=== PATIENT | male | born 1960 | race Two or more races ===

== ENCOUNTER 2022-04-19 12:01 | Emergency (ER) | payer OTHER, SELFPAY ==
[2022-04-19 12:27] VITALS: BP 150/88; BP 162/92; PULSE 81; PULSE 82; RESP 16; TEMP 36.5; O2SAT 97; O2SAT 98; BMI 35.6
--- NOTE | 2022-04-19 12:28 | ED.BACK ---
HPI - Back Pain/Injury General Chief Complaint: Back Pain/Injury <Venus Schreiber CNP - Last Filed: 04/19/22 12:31> Stated Complaint: Back pain since last PM per EMS <Venus Schreiber CNP - Last Filed: 04/19/22 12:31> Time Seen by Provider: 04/19/22 13:03 <Venus Schreiber CNP - Last Filed: 04/19/22 12:31> Source: patient, family (patient's ) and EMS <YVONNE Carlson - Last Filed: 04/19/22 18:45> Mode of arrival: EMS <YVONNE Carlson - Last Filed: 04/19/22 18:45> Limitations: no limitations <YVONNE Carlson - Last Filed: 04/19/22 18:45> History of Present Illness HPI Narrative: Patient is a 61 year old assigned male at with no reported medical history presenting to the emergency department today with low back pain. Patient states that he has had left sided low back pain that radiates down his left leg. 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 Patient denies any dizziness, lightheadedness, abdominal pain, nausea, vomiting, fever, chills, blurry vision, double vision, loss of vision, chest pain, difficulty breathing, shortness of breath, night sweats, pain with urination, increased urinary frequency, increased urinary urgency, blood in his urine or stool, syncope or a near syncopal episode, recent trauma or falls, bowel incontinence, bladder incontinence, bowel retention, bladder retention, or any other complaints at this time. <YVONNE Carlson - Last Filed: 04/19/22 18:45> MD elicited complaint: back pain <YVONNE Carlson - Last Filed: 04/19/22 18:45> Onset (ago): day(s) <YVONNE Carlson - Last Filed: 04/19/22 18:45> Timing: constant <YVONNE Carlson - Last Filed: 04/19/22 18:45> Severity: mild <YVONNE Carlson Last Filed: 04/19/22 18:45> Pain scale (0-10): 3 <YVONNE Carlson - Last Filed: 04/19/22 18:45> Quality: dull <YVONNE Carlson - Last Filed: 04/19/22 18:45> Location: lumbar spine <YVONNE Carlson - Last Filed: 04/19/22 18:45> Radiation: left upper leg <YVONNE Carlson - Last Filed: 04/19/22 18:45> Exacerbating factors: movement <YVONNE Carlson - Last Filed: 04/19/22 18:45> Relieving factors: none <YVONNE Carlson - Last Filed: 04/19/22 18:45> Associated symptoms: denies other symptoms <YVONNE Carlson - Last Filed: 04/19/22 18:45> Related Data Home Medications: Previous Rx's Medication Instructions Recorded cyclobenzaprine 5 mg tablet 5 mg PO TID PRN back pain 7 days 04/19/22 #21 tabs <Venus Schreiber CNP - Last Filed: 04/19/22 12:31> Allergies/Adverse Reactions: Allergies Allergy/AdvReac Type Severity Reaction Status Date / Time No Known Allergies Allergy Verified 04/19/22 12:31 <Venus Schreiber CNP - Last Filed: 04/19/22 12:31> Review of Systems Constitutional: Constitutional: Reports no additional constitutional complaints, Denies chills, Denies fever(s) and Denies night sweats <YVONNE Carlson - Last Filed: 04/19/22 18:45> Eyes: Eyes: Reports no additional eye complaints, Denies blurry vision, Denies change in vision, Denies diplopia, Denies eye discharge, Denies loss of vision and Denies eye pain <YVONNE Carlson - Last Filed: 04/19/22 18:45> ENT: Denies dizziness <YVONNE Carlson - Last Filed: 04/19/22 18:45> Cardiovascular: Cardiovascular: Reports no additional cardiovascular complaints, Denies chest pain, Denies lightheadedness, Denies Loss of Consciousness and Denies dyspnea <YVONNE Carlson - Last Filed: 04/19/22 18:45> Respiratory: Respiratory: Reports no additional respiratory complaints and Denies dyspnea <YVONNE Carlson - Last Filed: 04/19/22 18:45> Gastrointestinal: Gastrointestinal: Reports no additional gastrointestinal complaints, Denies abdominal pain, Denies melena, Denies hematochezia, Denies change in bowel habits and Denies change in stool character <YVONNE Carlson - Last Filed: 04/19/22 18:45> Genitourinary: Genitourinary: Reports no additional male genitourinary complaints, Denies hematuria, Denies oliguria, Denies difficulty urinating, Denies dysuria, Denies urinary frequency, Denies urinary hesitancy, Denies urinary incontinence and Denies urinary urgency <YVONNE Carlson - Last Filed: 04/19/22 18:45> Musculoskeletal: Musculoskeletal: Reports no additional musculoskeletal complaints, Reports back pain, Denies numbness and Denies tingling <YVONNE Carlson - Last Filed: 04/19/22 18:45> Neurologic: Denies dizziness, Denies loss of vision, Denies numbness and Denies tingling <YVONNE Carlson - Last Filed: 04/19/22 18:45> Psychiatric: Psychiatric: Reports no additional psychiatric complaints <YVONNE Carlson - Last Filed: 04/19/22 18:45> Endocrine: Endocrine: Reports no additional endocrine complaints <YVONNE Carlson - Last Filed: 04/19/22 18:45> Hematologic/Lymphatic: Hematologic/Lymphatic: Reports no additional hematologic/lymphatic complaints <YVONNE Carlson - Last Filed: 04/19/22 18:45> Allergic/Immunologic: Allergic/Immunologic: Reports no additional allergic/immunologic complaints <YVONNE Carlson - Last Filed: 04/19/22 18:45> [facility] Past Medical History Attestation statement: The following information was validated with the patient. <YVONNE Carlson - Last Filed: 04/19/22 18:45> Source: old records reviewed and nursing notes reviewed <YVONNE Carlson - Last Filed: 04/19/22 18:45> Social History Social History: Social History Alcohol intake: never Smoked in Last 30 Days: No Use of substances other than those prescribed or required for medical reasons: No Advance Directives: No Advance Directives Information Provided: No <Venusyobani Dsouza NARA Schreiber - Last Filed: 04/19/22 12:31> Physical Exam Vital Signs: Vital Signs: Last Vital Signs Temp 97.7 F 04/19/22 12:27 Pulse 80 04/19/22 14:28 Resp 18 04/19/22 14:28 BP 150/80 H 04/19/22 14:28 Pulse Ox 98 04/19/22 12:27 BMI result Body Mass Index 35.6 <Venus SchreiberNARA - Last Filed: 04/19/22 12:31> Vital Signs: Last Vital Signs Temp 97.7 F 04/19/22 12:27 Pulse 80 04/19/22 14:28 Resp 18 04/19/22 14:28 BP 150/80 H 04/19/22 14:28 Pulse Ox 98 04/19/22 12:27 BMI result Body Mass Index 35.6 <YVONNE Carlson - Last Filed: 04/19/22 18:45> Const: General: cooperative, no acute distress, alert and awake <YVONNE Carlson - Last Filed: 04/19/22 18:45> Nutritional Appearance: well nourished <YVONNE Carlson - Last Filed: 04/19/22 18:45> Orientation/consciousness: patient oriented x3 <YVONNE Carlson - Last Filed: 04/19/22 18:45> Limitations: no limitations <YVONNE Carlson - Last Filed: 04/19/22 18:45> HEENT: Head: Yes normal to inspection and Yes atraumatic <YVONNE Carlson - Last Filed: 04/19/22 18:45> Ears: hearing grossly normal bilaterally and external ears normal <YVONNE Carlson - Last Filed: 04/19/22 18:45> General nose exam: Normal external nose present, no nasal discharge noted and no epistaxis <YVONNE Carlson - Last Filed: 04/19/22 18:45> Face and sinus: Yes normal facial exam, No abrasion and No laceration <YVONNE Carlson - Last Filed: 04/19/22 18:45> Mouth: Normal oral and palatal mucosa present, no drooling and no muffled voice <Brie Overton [place] - Last Filed: 04/19/22 18:45> Eyes: General: appearance normal, both eyes and all related structures <Brie OvertonYVONNE - Last Filed: 04/19/22 18:45> Periorbital: periorbital findings normal <Brie Overton [place] - Last Filed: 04/19/22 18:45> Eyelids: Yes eyelids normal <Brie Overton [place] - Last Filed: 04/19/22 18:45> Conjunctivae: conjunctivae normal <Brie Overton [place] - Last Filed: 04/19/22 18:45> Pupils: Equal, round and reactive pupils present <Brie Overton [place] - Last Filed: 04/19/22 18:45> EOM: EOMs intact bilaterally <Brie Overton [place] - Last Filed: 04/19/22 18:45> Neck: Neck: Yes normal visual inspection, Yes full ROM and Yes no lymphadenopathy <Brie Beaulieumarco [place] - Last Filed: 04/19/22 18:45> Chest: Chest palpation & inspection: normal inspection of the chest <Brie Overton [place] - Last Filed: 04/19/22 18:45> Resp: Effort & Inspection: normal respiratory effort and able to speak in complete sentences <Brie Beaulieumarco [place] - Last Filed: 04/19/22 18:45> Auscultation: clear to auscultation bilaterally <Brie Beaulieumarco [place] - Last Filed: 04/19/22 18:45> Cardio: Rate: regular rate <Brie Beaulieumarco [place] - Last Filed: 04/19/22 18:45> Rhythm: regular rhythm <Brie Beaulieumarco [place] - Last Filed: 04/19/22 18:45> GI: Inspection: Yes normal to inspection <Brie Beaulieumarco [place] - Last Filed: 04/19/22 18:45> : General: Yes no CVA tenderness <Brie Overton [place] - Last Filed: 04/19/22 18:45> Back/Spine/Pelvis: Back: no CVA tenderness <Brie Beaulieumarco [place] - Last Filed: 04/19/22 18:45> Cervical Spine: normal cervical lordosis and cervical ROM normal <YVONNE Carlson - Last Filed: 04/19/22 18:45> Thoracic/Lumbar Spine: thoracic and lumbar spine normal to inspection and thoraco-lumbar ROM normal <YVONNE Carlson - Last Filed: 04/19/22 18:45> Pelvis: no pain with anterior-posterior compression <YVONNE Carlson - Last Filed: 04/19/22 18:45> Neuro: General: patient oriented x3 and moves all extremities <YVONNE Carlson - Last Filed: 04/19/22 18:45> Cranial nerves: Yes Equal, round and reactive pupils present <YVONNE Carlson - Last Filed: 04/19/22 18:45> Cognition (Neuro): normal cognition <YVONNE Carlson - Last Filed: 04/19/22 18:45> Motor exam (neuro): 5/5 motor strength present throughout <YVONNE Carlson - Last Filed: 04/19/22 18:45> Sensory Exam: Normal double simultaneous stimulation for sensation <YVONNE Carlson - Last Filed: 04/19/22 18:45> Coordination: [id number] test normal <YVONNE Carlson - Last Filed: 04/19/22 18:45> Extrem: General: Yes normal to inspection, Yes full ROM and Yes capillary refill normal <YVONNE Carlson - Last Filed: 04/19/22 18:45> Psych: Appearance: grossly normal <YVONNE Carlson - Last Filed: 04/19/22 18:45> Mental Status: mental status grossly normal <YVONNE Carlson - Last Filed: 04/19/22 18:45> Affect: normal affect <YVONNE Carlson - Last Filed: 04/19/22 18:45> Attitude: cooperative <YVONNE Carlson - Last Filed: 04/19/22 18:45> Thought process: Normal thought process present <YVONNE Carlson - Last Filed: 04/19/22 18:45> Thought content: Normal thought content present <YVONNE Carlson - Last Filed: 04/19/22 18:45> Insight: Good insight present (Psych) <YVONNE Carlson - Last Filed: 04/19/22 18:45> Course Course Course Narrative: This is an RME: Additional HPI, ROS, PE not included below will be deferred to primary provider. Patient is a 61-year-old male presents to the emergency department via EMS for evaluation of left lower back pain radiating into the buttocks since yesterday evening. Numbness and tingling to LLE. No precipitating injury. Pain is made worse with particular movements. He received Toradol via EMS prior to arrival. Denies any prior history of back pain similar to this. Denies dysuria, hematuria, urinary frequency. <Venus Schreiber CNP - Last Filed: 04/19/22 12:31> Medications Administered Discontinued Medications Generic Name Dose Route Start Last Admin Trade Name Freq PRN Reason Stop Dose Admin Cyclobenzaprine HCl 5 mg 04/19/22 13:59 04/19/22 14:18 Cyclobenzaprine Hcl 5 Mg Tablet PO 04/19/22 14:00 5 mg ONCE ONE Administration Ketorolac Tromethamine 15 mg 04/19/22 13:59 04/19/22 14:18 Ketorolac Tromethamine 15 Mg/Ml Vial IM 04/19/22 14:00 15 mg ONCE ONE Administration <Venus Schreiber CNP - Last Filed: 04/19/22 12:31> Medications Administered Discontinued Medications Generic Name Dose Route Start Last Admin Trade Name Freq PRN Reason Stop Dose Admin Cyclobenzaprine HCl 5 mg 04/19/22 13:59 04/19/22 14:18 Cyclobenzaprine Hcl 5 Mg Tablet PO 04/19/22 14:00 5 mg ONCE ONE Administration Ketorolac Tromethamine 15 mg 04/19/22 13:59 04/19/22 14:18 Ketorolac Tromethamine 15 Mg/Ml Vial IM 04/19/22 14:00 15 mg ONCE ONE Administration <YVONNE Carlson - Last Filed: 04/19/22 18:45> Medical Decision Making Medical Decision Making MDM Narrative: Patient is a 61 year old assigned male at with no reported medical history presenting to the emergency department today with low back pain. Patient's physical exam was unremarkable. Patient's clinical presentation is most consistent with sciatica. I explained my physical exam findings as well as all test results to the patient. I answered all questions asked by the patient. Patient received IM Toradol and PO Flexeril which he stated helped his symptoms significantly. I stressed the importance of the patient taking his medication as prescribed. I stressed the importance of the patient following up with his primary care provider. I stressed the importance of the patient returning to the emergency department immediately if his symptoms were to worsen or if he were to develop any dizziness, shortness of breath, difficulty breathing, chest pain, blurry vision, loss of vision, nausea, vomiting, abdominal pain, fever, chills, back pain, or any other complaints. Patient verbalized agreement and understanding with this treatment plan and discharge. <YVONNE Carlson - Last Filed: 04/19/22 18:45> Differential Diagnosis Differential Diagnoses: The differential diagnosis associated with the presentation includes <YVONNE Carlson - Last Filed: 04/19/22 18:45> sciatica, low back pain <YVONNE Carlson - Last Filed: 04/19/22 18:45> Discharge Plan Discharge Clinical Impression: Sciatica <Venus Schreiber CNP - Last Filed: 04/19/22 12:31> Patient Disposition: Home, Self-Care <Venus Schreiber CNP - Last Filed: 04/19/22 12:31> Instructions: Sciatica (ED) <Venus Schreiber CNP - Last Filed: 04/19/22 12:31> Additional Instructions: Follow up with your primary care provider. Return to the emergency department immediately if your symptoms worsen or if you develop any dizziness, shortness of breath, difficulty breathing, chest pain, blurry vision, loss of vision, nausea, vomiting, abdominal pain, fever, chills, back pain, or any other complaints. <Venus Schreiber CNP - Last Filed: 04/19/22 12:31> Prescriptions: New cyclobenzaprine 5 mg tablet 5 mg PO TID PRN (Reason: back pain) 7 Days Qty: 21 0RF <Venus Schreiber CNP - Last Filed: 04/19/22 12:31> [place]: [facility] [facility] [place] (Call to establish and follow up with a primary care provider. If you already have a primary care provider, please follow up with them.) [facility] [facility] (Call to establish and follow up with a primary care provider. If you already have a primary care provider, please follow up with them.) [facility] [facility]] (Call to establish and follow up with a primary care provider. If you already have a primary care provider, please follow up with them.) <Venus Schreiber CNP - Last Filed: 04/19/22 12:31> Interventions: ED Discharge Assessment Last Done: 04/19/22 14:36 <Venus Schreiber CNP - Last Filed: 04/19/22 12:31> Discharge Date/Time: 04/19/22 14:37 <Venus Schreiber CNP - Last Filed: 04/19/22 12:31> Print Language: Nam[place]ian <Venus Schreiber CNP - Last Filed: 04/19/22 12:31>
[2022-04-19] MEDS: Ketorolac Tromethamine 15 MG/ML VIAL IM (14:18)
[2022-04-19] MEDS: Cyclobenzaprine HCl 5 MG TABLET PO (14:18)
[2022-04-19 14:28] VITALS: BP 150/80; PULSE 80; RESP 18
== END 2022-04-19 14:37 | disposition home or self-care (01) ==
PROVIDERS: Emergency Provider Emergency Medicine Emergency Medical Services
DX: M54.42 Lumbago with sciatica, left side (principal)
CPT/HCPCS: 96372; 99284; J1885

== ENCOUNTER 2024-04-21 17:20 | Emergency (ER) | payer MEDICAID, SELFPAY ==
--- NOTE | 2024-04-21 | ECG_ITS ---
Test Reason : CP Blood Pressure : */* mmHG Vent. Rate : 115 BPM Atrial Rate : 115 BPM P-R Int : 140 ms QRS Dur : 86 ms QT Int : 328 ms P-R-T Axes : 65 -44 77 degrees QTcB Int : 453 ms Sinus tachycardia Left axis deviation Minimal voltage criteria for LVH, may be normal variant ( R in aVL ) Abnormal ECG No previous ECGs available Referred By: Generic ED Physician Electronically Signed By: JOSE BRADSHAW MD
--- NOTE | ~2024-04-21 | XR_ITS ---
CLINICAL HISTORY: cp Two views of the chest. Findings: Body habitus limits the study. Heart size is upper limits of normal. There is possible mild consolidation in the left lower lung. No pleural effusion is seen. Impression: Ill-defined opacity left lower lung could represent consolidation and pneumonia recommend follow-up. This document has been electronically signed by: Rosalio Nguyễn MD on 04/21/2024 18:49:46
--- NOTE | 2024-04-21 17:55 | ED.CHESTPAIN ---
HPI - Chest Pain General Chief Complaint: General Medical Stated Complaint: CP x 5 days Time Seen by Provider: 04/21/24 22:24 Source: patient, RN notes reviewed and old records reviewed Mode of arrival: ambulatory Limitations: no limitations History of Present Illness ED Provider: Trisha JOHNSON narrative: 63-year-old male presents for evaluation of chest pain, cough. He reports that he had a cold about a month ago He did improved from that, but for the last few days he has been complaining of a central chest pain that is worse with taking a deep breath. He has associated cough and shortness of breath He denies any fevers, chills. He has no history of asthma or COPD and does not use any inhalers Related Data Previous Rx's ?Medication ?Instructions ?Recorded cyclobenzaprine 5 mg tablet 5 mg PO TID PRN back pain 7 days 04/19/22 #21 tabs albuterol sulfate 90 mcg/actuation 2 puff inhalation Q4-6H PRN 04/21/24 aerosol inhaler shortness of breath or wheezing #8.5 grams amoxicillin 875 mg-potassium 1 tab PO Q12H #13 tabs 04/21/24 clavulanate 125 mg tablet azithromycin 250 mg tablet 250 mg PO DAILY 4 days #4 tabs 04/21/24 Allergies Allergy/AdvReac Type Severity Reaction Status Date / Time No Known Allergies Allergy Verified 04/21/24 17:58 Review of Systems Constitutional: Constitutional: Denies body ache(s), Denies chills, Denies fever(s) and Denies headache(s) ENT: Denies vertigo, Denies dizziness and Denies headache(s) Cardiovascular: Cardiovascular: Reports chest pain and Reports dyspnea Respiratory: Respiratory: Reports cough and Reports dyspnea Gastrointestinal: Gastrointestinal: Denies abdominal pain, Denies nausea and Denies vomiting Musculoskeletal: Musculoskeletal: Denies back pain Integumentary/Breasts: Skin/Breast: Denies rash Neurologic: Denies vertigo, Denies dizziness and Denies headache(s) [facility] Social History Social History Alcohol intake: never Smoked in Last 30 Days: No Use of substances other than those prescribed or required for medical reasons: No Advance Directives: No Advance Directives Information Provided: Yes Do you have a plan to hurt others: No Plan Physical Exam Vital Signs: Vital Signs: Last Vital Signs Temp 99 F 04/21/24 23:09 Pulse 100 04/21/24 23:09 Resp 20 04/21/24 23:09 BP 128/84 04/21/24 23:09 Pulse Ox 95 04/21/24 23:09 O2 Del Method Room Air 04/21/24 23:09 BMI result Body Mass Index 35.7 Const: General: healthy appearing, comfortable, no acute distress, alert and awake Nutritional Appearance: well nourished Orientation/consciousness: patient oriented x3 HEENT: Head: Yes normocephalic and Yes atraumatic Eyes: Eyelids: Yes eyelids normal Conjunctivae: conjunctivae normal Sclerae: sclerae normal Corneas: corneas normal Pupils: Equal, round and reactive pupils present EOM: EOMs intact bilaterally Neck: Neck: Yes full ROM Resp: Effort & Inspection: normal respiratory effort, able to speak in complete sentences, no audible wheezes and not labored Auscultation: clear to auscultation bilaterally Skin: General skin exam: elasticity normal Neuro: General: patient oriented x3 Cranial nerves: Yes Equal, round and reactive pupils present and Yes Bilaterally intact EOM present Cognition (Neuro): normal cognition Course Course Course Narrative: This is a Rapid Medical Exam performed in triage by Elysia Begum PA-C. Full HPI, ROS and PE to be performed by primary ED provider. 63 yo M presenting to the ED c/o chest pain, worse with deep breathing & coughing x5 days. +SOB. Denies ALLEN, myalgias, fever, history of clots, recent travel. Denies anticoagulation use PE: nontoxic appearing, talking in complete sentences, lungs CTA, chest pain reproducible to palpation. No rash Plan: EKG, Labs, CXR, SARs Medications Administered Discontinued Medications Generic Name Dose Route Start Last Admin Trade Name Freq PRN Reason Stop Dose Admin Amoxicillin/Clavulanate Potassium 875 mg 04/21/24 22:55 04/21/24 23:09 Amoxicillin/Potassium Clav 875 Mg Tablet PO 04/21/24 22:56 875 mg ONCE ONE Administration Azithromycin 500 mg 04/21/24 22:55 04/21/24 23:09 Azithromycin 500 Mg Tablet PO 04/21/24 22:56 500 mg ONCE ONE Administration Medical Decision Making Medical Decision Making [facility] Narrative: 63-year-old male presents for evaluation of chest pain and cough. He has a leukocytosis to 14.8. He does have a very mild anemia, unclear etiology. No significant chemistry abnormalities. Troponin is negative. EKG is sinus tachycardia but no obvious ischemia. Chest x-ray shows a left lower lobe pneumonia which is consistent with the patient's symptoms. He was not hypoxic or septic. He appears quite well. We will treat the patient with azithromycin and Augmentin for treatment of community-acquired pneumonia Differential Diagnosis Differential Diagnoses: The differential diagnosis associated with the presentation includes Community-acquired pneumonia CHF ACS less likely NSTEMI Chest pain Bronchitis COVID-19 Admission/Observation Consideration of admission/observation: Escalation of care including admission/observation considered Lab Data [facility] Lab Attestation statement: I reviewed the patient's lab results. As above 04/21/24 19:29 04/21/24 19:29 Labs: Lab Results 04/21/24 Range/Units 19:29 WBC 14.8 H (4.8-10.8) X10*3/uL RBC 4.17 L (4.60-5.80) X10*6/uL Hgb 13.2 L (14.0-18.0) g/dl Hct 37.6 L (42.0-52.0) % MCV 90.2 (80.0-98.0) fL MCH 31.7 (27.0-33.0) pg MCHC 35.1 (31.0-36.0) g/dl RDW 11.8 (11.0-16.0) % Plt Count 296 (160-400) X10*3/uL MPV 9.6 (9.4-12.4) fL Immature Gran % (Auto) 0.4 (0.0-0.4) % Neut % (Auto) 65.9 (45-73) % Lymph % (Auto) 24.3 (20-40) % Whitley % (Auto) 7.5 (2-11) % Eos % (Auto) 1.7 (0-4) % Baso % (Auto) 0.2 (0-2) % Lymph # (Auto) 3.6 (1.2-4.9) X10*3/uL Whitley # (Auto) 1.1 (0.1-1.2) X10*3/uL Eos # (Auto) 0.3 (0.0-0.4) X10*3/uL Baso # (Auto) 0.0 (0.0-0.2) X10*3/uL Abs Immat Gran (auto) 0.06 H (0.00-0.03) X10*3/uL Absolute Neuts (auto) 9.8 H (2.0-8.3) x10*3/uL Absolute Nucleated RBC 0.000 (0.0-0.012) X10*3/uL Nucleated RBC % (auto) 0.0 (0.0-0.2) /100WBC PT 12.6 H (10.9-12.4) SEC INR 1.1 (0.9-1.1) Sodium 141 (135-145) mmol/L Potassium 3.9 (3.3-5.1) mmol/L Chloride 107 (96-108) mmol/L Carbon Dioxide 25 (22-29) mmol/L Anion Gap 13 (12-20) BUN 13 (9-16) mg/dL Creatinine 0.84 (0.5-1.4) mg/dL Estim Creat Clear Calc 106.4 Estimated GFR > 60 Random Glucose 127 H (60-115) mg/dL Calcium 9.5 (8.4-10.2) mg/dL Magnesium 2.0 (1.6-2.6) mg/dL Total Bilirubin 0.4 (0.0-1.0) mg/dL Direct Bilirubin 0.2 (0.0-0.5) mg/dL AST 18 (5-37) U/L ALT 19 (0-40) U/L Alkaline Phosphatase 68 (39-117) U/L Troponin I High Sens < 2.7 (<3.5-35.0) ng/L Total Protein 8.7 H (6.5-8.0) g/dL Albumin 4.1 (3.5-5.0) g/dL Influenza Type A (PCR) NEGATIVE (Negative) Influenza Type B (PCR) NEGATIVE (Negative) RSV RNA Qual (PCR) NEGATIVE (Negative) SARS-CoV-2 RNA (RT-PCR) NEGATIVE (Negative) Independent Interpretation I performed an independent interpretation of an: EKG (Sinus tachycardia but no evidence of acute ischemia) and Plain X-Ray Interpretation: Agree with Radiology interpretation, left lower lobe infiltrate Radiology Impression Discussion of test interpretation with radiology: I have reviewed the radiologist's reading. Radiologist Impression: Findings: Body habitus limits the study. Heart size is upper limits of normal. There is possible mild consolidation in the left lower lung. No pleural effusion is seen. Impression: Ill-defined opacity left lower lung could represent consolidation and pneumonia recommend follow-up. This document has been electronically signed by: Rosalio Nguyễn MD on 04/21/2024 18:49:46 Discharge Plan Discharge Clinical Impression: Community acquired pneumonia Patient Disposition: Home, Self-Care Instructions: Community Acquired Pneumonia (ED) Additional Instructions: Your chest x-ray shows a left lower lobe pneumonia which explains all your symptoms. Take both antibiotics as prescribed. You may use albuterol as needed for wheezing, shortness of breath. Hydrate well Follow-up with your primary doctor, return for new or worsening symptoms Prescriptions: New azithromycin 250 mg tablet 250 mg PO DAILY 4 Days Qty: 4 0RF Rx Instructions: start on day 2 of therapy amoxicillin-pot clavulanate 875-125 mg tablet 1 tab PO Q12H Qty: 13 0RF albuterol sulfate 90 mcg/actuation HFA aerosol inhaler 2 puff inhalation Q4-6H PRN (Reason: shortness of breath or wheezing) Qty: 8.5 0RF No Action cyclobenzaprine 5 mg tablet 5 mg PO TID PRN (Reason: back pain) 7 Days Qty: 21 0RF Interventions: ED Discharge Assessment Last Done: 04/21/24 23:09 Discharge Date/Time: 04/21/24 23:17 Print Language: [place]guill[place]
[2024-04-21 17:57] VITALS: BP 132/82; PULSE 112; RESP 18; TEMP 37.3; O2SAT 98; BMI 35.7
[2024-04-21 19:34] LABS: MANUAL DIFF FLAG NO
[2024-04-21 19:35] LABS: Basophils Percent Auto 0.2 % (0-2); Eosinophils Absolute Auto 0.3 X10*3/uL (0.0-0.4); Eosinophils Percent Auto 1.7 % (0-4); Hematocrit 37.6 % (42.0-52.0); Hemoglobin 13.2 g/dl (14.0-18.0); Imm Gran Abs Auto 0.06 X10*3/uL (0.00-0.03); Imm Gran Pct Auto 0.4 % (0.0-0.4); Lymphocytes Absolute Auto 3.6 X10*3/uL (1.2-4.9); Lymphocytes Percent Auto 24.3 % (20-40); Mean Corpuscular HGB Conc 35.1 g/dl (31.0-36.0); Mean Corpuscular Hemoglobin 31.7 pg (27.0-33.0); Mean Corpuscular Volume 90.2 fL (80.0-98.0); Mean Platelet Volume 9.6 fL (9.4-12.4); Monocytes Absolute Auto 1.1 X10*3/uL (0.1-1.2); Monocytes Percent Auto 7.5 % (2-11); Neutrophils Absolute Auto 9.8 x10*3/uL (2.0-8.3); Neutrophils Percent Auto 65.9 % (45-73); Platelet Count 296 X10*3/uL (160-400); Red Blood Count 4.17 X10*6/uL (4.60-5.80); Red Cell Distribution Width 11.8 % (11.0-16.0); White Blood Count 14.8 X10*3/uL (4.8-10.8)
[2024-04-21 19:45] LABS: INTERNATIONAL NORM RATIO 1.1 (0.9-1.1); Prothrombin Time 12.6 SEC (10.9-12.4)
[2024-04-21 19:52] LABS: Alanine Aminotransferase 19 U/L (0-40); Albumin Level 4.1 g/dL (3.5-5.0); Alkaline Phosphatase 68 U/L (39-117); Anion Gap 13 (12-20); Aspartate Amino Transferase 18 U/L (5-37); Bilirubin Direct 0.2 mg/dL (0.0-0.5); Bilirubin Total 0.4 mg/dL (0.0-1.0); Blood Urea Nitrogen 13 mg/dL (9-16); Calcium 9.5 mg/dL (8.4-10.2); Carbon Dioxide 25 mmol/L (22-29); Chloride 107 mmol/L (96-108); Creatinine Clr Calc Pharmacy 106.4; Estimated Glomerular Filt Rate > 60; Glucose Random 127 mg/dL (60-115); Potassium 3.9 mmol/L (3.3-5.1); Sodium 141 mmol/L (135-145); Total Protein 8.7 g/dL (6.5-8.0)
[2024-04-21 19:59] LABS: Troponin-I High Sensitivity < 2.7 ng/L (<3.5-35.0)
[2024-04-21 20:11] LABS: Influenza A PCR NEGATIVE (Negative); Influenza B PCR NEGATIVE (Negative); Resp Syncy Virus RNA Qual PCR NEGATIVE (Negative); SARS COV2 PCR INHOUSE NEGATIVE (Negative)
[2024-04-21 21:45] VITALS: BP 141/86; PULSE 105; RESP 22; O2SAT 97
[2024-04-21 23:09] VITALS: BP 128/84; PULSE 100; RESP 20; TEMP 37.2; O2SAT 95
[2024-04-21] MEDS: Amoxicillin/Potassium Clav 875 MG TABLET PO (23:09)
[2024-04-21] MEDS: Azithromycin 500 MG TABLET PO (23:09)
== END 2024-04-21 23:17 | disposition home or self-care (01) ==
PROVIDERS: Physician Assistant; Emergency Provider Emergency Medicine
DX: J18.9 Pneumonia, unspecified organism (principal)
CPT/HCPCS: 0241U; 71046; 80048; 80076; 83735; 84484; 85025; 85610; 93005; 99283; 99284

== ENCOUNTER → 2024-04-21 17:24 | Outpatient (BNV) | payer MEDICAID, SELFPAY | PROVIDERS: Emergency Provider Emergency Medicine; Visit Provider Internal Medicine Cardiovascular Disease | DX: R07.9 Chest pain, unspecified (principal); R00.0 Tachycardia, unspecified; R94.31 Abnormal electrocardiogram [ECG] [EKG] | CPT/HCPCS: 93010 ==

== ENCOUNTER → 2024-04-21 17:56 | Outpatient (BNV) | payer OTHER, SELFPAY | PROVIDERS: Visit Provider Radiology Diagnostic Radiology | DX: R91.8 Other nonspecific abnormal finding of lung field (principal) | CPT/HCPCS: 71046 ==